=== PATIENT | female | born 1950 | race Caucasian/White ===

== ENCOUNTER 2021-07-14 14:07 | Emergency (ER) | payer OTHER ==
[~2021-07-14] VITALS: Ht 149.9 cm; Wt 68.0 kg
[2021-07-14 14:38] LABS: BASOPHILS PERCENT AUTO 1 % (0-2); EOSINOPHILS ABSOLUTE AUTO 0.08 K/mm3 (0.00-0.68); EOSINOPHILS PERCENT AUTO 1 % (0-6); Hematocrit 28.5 % (33.0-51.0); Hemoglobin 7.7 g/dL (11.5-16.0); IMMATURE GRAN ABSOLUTE AUTO 0.02 K/mm3 (0.00-0.10); IMMATURE GRAN PERCENT AUTO 0 % (0-1); LYMPHOCYTES ABSOLUTE AUTO 1.48 K/mm3 (0.84-5.20); LYMPHOCYTES PERCENT AUTO 19 % (21-46); MONOCYTES ABSOLUTE AUTO 0.71 K/mm3 (0.16-1.47); MONOCYTES PERCENT AUTO 9 % (4-13); Mean Corpuscular HGB 18.6 pg (26.0-34.0); Mean Corpuscular Volume 69 fL (80-100); Mean Platelet Volume 11.3 fL (9.1-12.4); NEUTROPHILS ABSOLUTE AUTO 5.56 K/mm3 (1.96-9.15); NEUTROPHILS PERCENT AUTO 70 % (41-73); Platelet Count 192 K/mm3 (150-400); RDW Standard Deviation 47.3 fL (35.1-46.3); Red Blood Cell Count 4.13 M/mm3 (3.80-5.20); White Blood Cell Count 7.95 K/mm3 (4.00-11.30)
[2021-07-14] MEDS ORDERED: IBUP600 PO (14:49)
[2021-07-14 15:11] LABS: Alanine Aminotransfer (ALT/SGP 18 U/L (12-78); Albumin, Blood 3.5 g/dL (3.4-5.0); Albumin/Globulin Ratio 1.1 (0.8-1.8); Alk Phos 72 U/L (50-136); Anion Gap 4 mmol/L (6-16); Aspartate Aminotrans (AST/SGOT 13 U/L (12-37); Bilirubin, Total 0.3 mg/dL (0.1-1.0); Blood Urea Nitrogen 18 mg/dL (8-24); Bun/Creatinine Ratio 23.1 (12.0-20.0); CO2, Blood 25 mmol/L (21-32); Calcium, Blood 8.7 mg/dL (8.5-10.1); Chloride, Blood 111 mmol/L (98-108); Creatinine, Blood 0.78 mg/dL (0.40-1.00); Globulin, Blood 3.2 g/dL (2.2-4.0); Glomerular Filtration Rate >60 (60-); Glucose, Blood 95 mg/dL (70-99); Potassium, Blood 3.8 mmol/L (3.5-5.5); Sodium, Blood 140 mmol/L (136-145); Total Protein, Blood 6.7 g/dL (6.4-8.2)
[2021-07-14 16:36] LABS: Percent Saturation 3.5 % (15.0-50.0)
== END 2021-07-14 17:19 | disposition home or self-care (01) ==
LOC: ER 14:07
PROVIDERS: Physician Assistant
DX: D50.9 Iron deficiency anemia, unspecified (principal)
CPT/HCPCS: 36415; 80053; 82728; 83540; 83550; 85025; 96374; 99283-25; J2916

== ENCOUNTER → 2021-10-16 | Outpatient (CLI) | payer OTHER ==
[~2021-10-16] MED LIST: IBUP600 PO
== END ==
LOC: LAB 10:30 → LAB SHORT 10:30
DX: E53.8 Deficiency of other specified B group vitamins (principal)
CPT/HCPCS: 82607; 82746

== ENCOUNTER 2022-06-25 07:07 | Day surgery (SDC) | payer OTHER ==
[~2022-06-25] VITALS: Ht 149.9 cm; Wt 70.6 kg
[~2022-06-25 07:07] MED LIST changes: +FAMO20 PO
--- NOTE | 2022-06-25 08:05 | NUR ---
06/25/22 0805 Adan Marrufo HISTORY, CHART, MEDICATIONS AND ALLERGIES REVIEWED BEFORE START OF PROCEDURE. PATIENT CONFIRMS NPO STATUS AND AGREES WITH SCHEDULED PROCEDURE. 3-LEAD EKG REVIEWED WITH PHYSICIAN PRIOR TO START OF PROCEDURE. MONITOR INTACT WITH CONTINUOUS PULSE OXIMETRY,CAPNOGRAPHY, 3-LEAD EKG, INTERMITTENT BP. SUPPLEMENTAL O2 TO BE TITRATED THROUGHOUT PROCEDURE TO MAINTAIN O2 SATURATION ABOVE 90%. PATIENT DETERMINED TO BE ASA APPROPRIATE FOR PROPOFOL SEDATION PRIOR TO START OF PROCEDURE BY DR. VICTORIA.
--- NOTE | 2022-06-25 08:14 | NUR ---
PT ADMITTED TO [facility]. AGREES WITH PLANNE PROCEDURE. STATES TOLERTED BOWEL PREP. LUNG SOUNDS CLEAR.
--- NOTE | 2022-06-25 09:42 | NUR ---
PT IN NO ACUTE DISTRESS. TOLERATES FLUIDS WELL. MEDS CALLED INTO [facility] PER PT REQUESTION. REVIEWED DISCHARGE INSTRUCTIONS. PT DISCHARGED HOME WITH FAMILY.
== END 2022-06-25 09:18 | disposition home or self-care (01) ==
LOC: ORSCMMR 07:07 → ORD 08:00 → ORSCMMR 09:18
PROVIDERS: Internal Medicine Gastroenterology
PROC: 0DBN8ZX Excision of Sigmoid Colon, Via Natural or Artificial Opening Endoscopic, Diagnostic (ICD-10-PCS; principal; 2022-06-25 08:00)
PROC: 0DB48ZX Excision of Esophagogastric Junction, Via Natural or Artificial Opening Endoscopic, Diagnostic (ICD-10-PCS; principal; 2022-06-25 08:00)
PROC: 0DB68ZX Excision of Stomach, Via Natural or Artificial Opening Endoscopic, Diagnostic (ICD-10-PCS; principal; 2022-06-25 08:00)
PROC: 0DB98ZX Excision of Duodenum, Via Natural or Artificial Opening Endoscopic, Diagnostic (ICD-10-PCS; principal; 2022-06-25 08:00)
DX: D50.0 Iron deficiency anemia secondary to blood loss (chronic) (principal); K25.4 Chronic or unspecified gastric ulcer with hemorrhage; K44.9 Diaphragmatic hernia without obstruction or gangrene; K21.9 Gastro-esophageal reflux disease without esophagitis; D12.5 Benign neoplasm of sigmoid colon; K63.89 Other specified diseases of intestine; K64.8 Other hemorrhoids; Z86.010 Personal history of colon polyps
CPT/HCPCS: 88305; 88341; 88342; A9270; J2704; J7120

== ENCOUNTER 2023-05-15 06:22 | Day surgery (SDC) | payer OTHER ==
[~2023-05-15] VITALS: Ht 149.9 cm; Wt 68.3 kg
[2023-05-15] MEDS ORDERED: FLUTICASONE-SA1 EAC8 IH (06:47)
[2023-05-15] MEDS ORDERED: OMEP20ER PO (06:47)
[2023-05-15] MEDS ORDERED: PROLIA60 MG/1 ML SQ (06:48)
[2023-05-15] MEDS ORDERED: KETOROLAC TROMET3 ML OP (06:48)
[2023-05-15] MEDS ORDERED: Ventolin5 MG/1 ML INH (06:49)
--- NOTE | 2023-05-15 08:09 | NUR ---
05/15/23 0809 Nan Rincon LIDOCAINE 2% WITH EPI 1:100,000 DILUTED 1:1 WITH NORMAL SALINE TO MAKE LIDOCAINE 1% WITH EPI 1:200,000 FOR INJECTION AT THE OPSITE BY DR JENNINGS. 3ML INJECTED BY DR JENNINGS PRIOR TO SURGERY START AT 0750.
--- NOTE | 2023-05-15 10:04 | NUR ---
05/15/23 1004 Mary Maldonado PT UP IN WC TO RESTROOM. RESTING COMFORTABLY AND STATES PAIN IS AT 3/10.
[2023-05-15 10:23] VITALS: BP 166/101
== END 2023-05-15 10:46 | disposition home or self-care (01) ==
LOC: ORSCSDS 06:22
PROVIDERS: Otolaryngology
PROC: 0GTG0ZZ Resection of Left Thyroid Gland Lobe, Open Approach (ICD-10-PCS; principal; 2023-05-15 07:30)
DX: E04.1 Nontoxic single thyroid nodule (principal); J45.909 Unspecified asthma, uncomplicated; K44.9 Diaphragmatic hernia without obstruction or gangrene; Z79.899 Other long term (current) drug therapy
CPT/HCPCS: 88307; A9270; J1100; J2250; J2405; J2704; J3010; J7120

== ENCOUNTER 2023-06-25 08:44 | Day surgery (SDC) | payer OTHER ==
[~2023-06-25] VITALS: Ht 149.9 cm; Wt 68.2 kg
[~2023-06-25 08:44] MED LIST changes: +FLUTICASONE-SA1 EAC8 IH; +KETOROLAC TROMET3 ML OP; +OMEP20ER PO; +PROLIA60 MG/1 ML SQ; +Ventolin5 MG/1 ML INH
--- NOTE | 2023-06-25 09:06 | NUR ---
06/25/23 09 Mey Morrow TETRACAINE TO LEFT EYE AT 0905 PLEDGET TO LEFT EYE AT 0906 BY [facility].CONSUELO
[2023-06-25 10:13] VITALS: BP 111/70
== END 2023-06-25 10:27 | disposition home or self-care (01) ==
LOC: ORSCSDS 08:44
PROVIDERS: Student in an Organized Health Care Education/Training Program
PROC: 08RK3JZ Replacement of Left Lens with Synthetic Substitute, Percutaneous Approach (ICD-10-PCS; principal; 2023-06-25 10:00)
DX: H25.12 Age-related nuclear cataract, left eye (principal); Z96.1 Presence of intraocular lens; J45.909 Unspecified asthma, uncomplicated; Z79.899 Other long term (current) drug therapy
CPT/HCPCS: J2250; J7040; V2632

== ENCOUNTER → 2024-06-04 | Outpatient (CLI) | payer OTHER ==
[2024-06-04 15:22] LABS: BASOPHILS ABSOLUTE AUTO 0.06 K/mm3 (0.00-0.23); BASOPHILS PERCENT AUTO 1 % (0-2); EOSINOPHILS ABSOLUTE AUTO 0.05 K/mm3 (0.00-0.68); EOSINOPHILS PERCENT AUTO 1 % (0-6); Hematocrit 47.6 % (33.0-51.0); Hemoglobin 14.9 g/dL (11.5-16.0); IMMATURE GRAN ABSOLUTE AUTO 0.02 K/mm3 (0.00-0.10); IMMATURE GRAN PERCENT AUTO 0 % (0-1); LYMPHOCYTES ABSOLUTE AUTO 1.26 K/mm3 (0.84-5.20); LYMPHOCYTES PERCENT AUTO 24 % (21-46); MONOCYTES ABSOLUTE AUTO 0.47 K/mm3 (0.16-1.47); MONOCYTES PERCENT AUTO 9 % (4-13); Mean Corpuscular HGB 29.4 pg (26.0-34.0); Mean Corpuscular HGB Conc 31.3 g/dL (31.5-36.5); Mean Corpuscular Volume 94 fL (80-100); Mean Platelet Volume 12.5 fL (9.1-12.4); NEUTROPHILS ABSOLUTE AUTO 3.45 K/mm3 (1.96-9.15); NEUTROPHILS PERCENT AUTO 65 % (41-73); Platelet Count 176 K/mm3 (150-400); RDW Coefficient Variation 14.1 % (11.7-14.2); RDW Standard Deviation 48.7 fL (35.1-46.3); Red Blood Cell Count 5.07 M/mm3 (3.80-5.20); White Blood Cell Count 5.31 K/mm3 (4.00-11.30)
[2024-06-04 19:27] LABS: Alanine Aminotransfer (ALT/SGP 28 U/L (12-78); Albumin, Blood 3.9 g/dL (3.4-5.0); Albumin/Globulin Ratio 1.3 (0.8-1.8); Alk Phos 48 U/L (50-136); Anion Gap 8 mmol/L (3-11); Aspartate Aminotrans (AST/SGOT 18 U/L (12-37); Bilirubin, Total 0.8 mg/dL (0.1-1.0); Blood Urea Nitrogen 10 mg/dL (8-24); Bun/Creatinine Ratio 15.9 (12.0-20.0); CHOL/HDL RATIO 3.9; CO2, Blood 26 mmol/L (21-32); Calcium, Blood 8.7 mg/dL (8.5-10.1); Chloride, Blood 109 mmol/L (98-108); Cholesterol 197 mg/dL (50-200); Creatinine, Blood 0.63 mg/dL (0.40-1.00); Globulin, Blood 2.9 g/dL (2.2-4.0); Glomerular Filtration Rate 92 (60-); Glucose, Blood 92 mg/dL (70-99); HDL Cholesterol 50 mg/dL (>39); LDL/HDL RATIO 2.7; Low Density Lipoprotein Chol 133 mg/dL (0-110); Potassium, Blood 3.9 mmol/L (3.5-5.5); Sodium, Blood 139 mmol/L (136-145); Total Protein, Blood 6.8 g/dL (6.4-8.2); Triglycerides 69 mg/dL (30-160); Very Low Density Lipoprot Chol 13 mg/dL (6-32)
== END ==
LOC: LAB SHORT 08:20 → LAB 08:20
PROVIDERS: Nurse Practitioner Family
DX: R03.0 Elevated blood-pressure reading, without diagnosis of hypertension (principal); E66.3 Overweight; E78.00 Pure hypercholesterolemia, unspecified; R73.09 Other abnormal glucose; E88.89 Other specified metabolic disorders
CPT/HCPCS: 80053; 80061; 83036; 85025